=== PATIENT | female | born 1965 | race Caucasian/White ===

== ENCOUNTER 2021-02-08 09:05 | Inpatient (IN) ==
[2021-02-08] MEDS ORDERED: ASPIRIN CHEW 324 MG PO STA (09:36)
[2021-02-08] MEDS ORDERED: PANTOprazole 40 MG TAB PO STA (09:38)
[2021-02-08] MEDS ORDERED: ALUMINUM/MAGNESIUM SUSP 30 ML UDC PO STA (09:38)
[2021-02-08 09:43] LABS: Basophils # (auto) 0.04 K/uL (0-0.2); Basophils % (auto) 0.6 %; Eosinophils # (auto) 0.31 K/uL (0-0.5); Eosinophils % (auto) 4.8 %; Hematocrit (blood only) 42.4 % (37-47); Hemoglobin 14.2 g/dL (12.0-16.0); Immature Granulocytes # (auto) 0.01 K/uL (0.00-0.02); Immature Granulocytes % (auto) 0.2 %; Lymphocytes # (auto) 2.21 K/uL (1.2-3.4); Lymphocytes % (auto) 34.3 %; Mean Corpuscular Hemoglobin 29.5 pg (25-34); Mean Corpuscular Hgb Conc 33.5 g/dL (32-36); Monocytes # (auto) 0.43 K/uL (0.11-0.59); Monocytes % (auto) 6.7 %; Neutrophils # (auto) 3.45 K/uL (1.4-6.5); Neutrophils % (auto) 53.4 %; Platelet Count 271 K/uL (130-400); RDW Standard Deviation 42.1 fL (36.4-46.3); Red Blood Count 4.82 M/uL (4.2-5.4); White Blood Count 6.45 K/uL (4.8-10.8)
--- NOTE | 2021-02-08 09:46 | XRay Report ---
XR chest 1V portable CLINICAL HISTORY: Atypical chest pain. COMPARISON STUDY: No previous studies for comparison. FINDINGS: Lung volumes are normal. Lungs are clear. There is no pneumothorax or pleural effusion. Car diac size is normal. Mediastinal contours are normal. There is no evidence for pulmonary edema. IMPRESSION: No acute cardiopulmonary findings. ACT 112: Negative or not required by law. Electronically signed by: Andrés Briones M.D. 02/08/2021 9:45 AM
[2021-02-08 10:01] LABS: Albumin Level 3.9 gm/dl (3.4-5.0); BUN Creatinine Ratio 28.1 (10-20); Calcium 9.5 mg/dl (8.5-10.1); Creatinine Clr Calc Pharmacy 78.3 ml/min; Est GFR (Non-African American) 83.7 ml/min; Potassium 3.7 mmol/L (3.5-5.1)
--- NOTE | 2021-02-08 10:02 | Emergency Department Note ---
Impression & Plan Acute non-ST elevation myocardial infarction (NSTEMI), Chest pain, Abnormal EKG ED Provider Note NAME: MISSY KELLOGG AGE: 55 SEX: F : 1965 ARRIVES VIA: Walk-In INFORMANT: Patient, ED PROVIDER(S): Anam Kendrick DO CHIEF COMPLAINT: Chest pain HPI: The patient is a 55-year-old female who presented to the emergency department for an evaluation of chest pain. The patient describes anterior chest pain which she describes as a pressure and a tightness. She states that this began this morning while she was in bed. She has never had similar symptoms in the past. She denies having any difficulty breathing. She states when she got up she started moving around. The pain did start to resolve on its own. The patient denies having any back pain. She has no abdominal pain. She denies having any history of reflux or reflux symptoms at this time. The patient was not seen by her family doctor. She presented to the emergency department for further evaluation. The patient states her pain is completely gone at this time. She has had no fever or cough. The patient denies having any recent traveling. The patient denies having any lower extremity swelling or pain. ROS: See above HPI for pertinent positives & negatives. A total of 10 systems reviewed and were otherwise negative. PAST MEDICAL HISTORY: See Below PAST SURGICAL HISTORY: See Below FAMILY HISTORY: See Below SOCIAL HISTORY: See Below HOME MEDICATIONS: See Below ALLERGIES: See Below VITALS: See Below PHYSICAL EXAMINATION: GENERAL: Patient is awake alert in no acute distress patient is resting comfortably and showing no signs of anxiety EYES: The conjunctivae are clear. The pupils are round and reactive. EARS, NOSE, MOUTH AND THROAT: The nose is without any evidence of any deformity. NECK: The neck is nontender and supple. RESPIRATORY: Normal respiratory effort is noted there is no evidence of wheezing rhonchi or rales CARDIOVASCULAR: Regular rate and rhythm noted there no murmurs rubs or gallops normal S1 normal S2. GASTROINTESTINAL: The abdomen is soft. Abdomen is nontender. MUSCULOSKELETAL/EXTREMITIES: There is no evidence of gross deformity full range of motion is noted in the hips and shoulders. SKIN: There is no obvious evidence of any rash. There are no petechiae, pallor or cyanosis noted. NEUROLOGIC: Patient is awake alert and oriented x 3. Gait was steady. MEDICAL DECISION MAKING: The patient is a 55-year-old female who presented to the emergency department for an evaluation of chest pain. The patient described chest pressure and s queezing which began this morning when she awoke. She denies having any abdominal complaints at this time. She denies having any black or bloody bowel movements. The patient states that she does not have a history of reflux. Her initial EKG showed subtle nonspecific ST segment abnormalities in the lateral leads. This was compared to a previous tracing. She was found to have an elevation in her cardiac biomarker. At this time the patient is pain-free. The patient was treated with aspirin in the emergency department. She was also given Protonix as well as Maalox. She was reevaluated multiple times. She continued to be pain-free in the emergency department. I discussed the patient's condition w ith the on-call [facility] emergency services director as well as the on-call [facility] hospitalist. They have agreed to evaluate the patient in the emergency department for further management and disposition. Triage Nursing notes reviewed. Prior medical records reviewed Vital Signs: reviewed and remarkable for elevated blood pressure. Differential diagnosis: Cardiac ischemia, aortic dissection, pulmonary embolism, pneumothorax, pneumonia, pericarditis, myocarditis, esophageal rupture, GERD, cholecystitis, pancreatitis, musculoskeletal, as well as other pathologies. ER treatment provided: See below Diagnostics interpreted by me: ECG: EKG was obtained in the emergency department. My interpretation is normal sinus rhythm at 72 bpm. There is no ectopy. Lateral ST segment depressions we re noted. This was compared to a tracing from January 242018. The EKG changes are new compared to earlier tracing. Cardiac Monitoring: An order was placed for continuous cardiac monitoring. The monitor shows a rate of 86 bpm with sinus rhythm. Laboratory studies: As stated above and show below. Imaging studies: See below Consultation(s): 1025: I discussed this case with Dr. Rodgers who is on-call for the [facility] cardiology group. He will evaluate the patient in the emergency department. He recommends heparin at this time. 1035: I discussed this case with Dr. Sotomayor who is on-call for the [facility] hospitalist group. He will evaluate the patient in the emergency department. ED COURSE: Procedures: none PDMP:reviewed and no issues Critical Care: I have personally spent greater than 45 minutes of critical care time in the direct management of this patient. This includes bedside care, interpretation of diagnostic studies, and testing, discussion with consultants, patient, and family members, and other required patient management activities. This 45 minutes is in excess of all separately billable procedures. Past Med/Surg History Medical History Hypertension Surgical History (Updated 02/08/21 @ 11:57 by PRISCILLA Pritchard) No pertinent past surgical history Family History Father Heart disease [place] at 64, fatal [place] at age 67 Social History (Updated 02/08/21 @ 12:04 by PRISCILLA Pritchard) Smoking Status: Never smoker Hx Alcohol Use: No Hx Substance Use: No Preferred Language: Hungarian Communication Ability: Effective Tafe Lecturer Required: No Beliefs That Will Affect Care: None Current Living Situation: Spouse Other Information That Helps Us Care for You: No Feels Safe at Home: Yes Safety Concerns: Feels Safe At This Time Assistive Devices: None Allergies Allergies Allergy/AdvReac Type Severity Reaction Status Date / Time amoxicillin [From Augmentin] Allergy Severe Vomiting Unverified 02/08/21 10:37 clavulanic acid Allergy Severe Vomiting Unverified 02/08/21 10:37 [From Augmentin] Home Meds Home Medications Medication Instructions Recorded Confirmed chlorthalidone 25 mg tablet 25 mg PO QAM 02/08/21 02/08/21 multivitamin 1 tab PO QAM 02/08/21 02/08/21 Results & Data (ED) Vital Signs Vital Signs - 24 hr 02/08/21 10:00 02/08/21 10:30 Pulse Rate 73 94 H Pulse Rate from SpO2 Sensor 72 94 H Respiratory Rate 16 19 Blood Pressure 157/89 H Blood Pressure Mean 111 Pulse Oximetry 98 98 Home Medications Current Medication List: was personally reviewed by me Laboratory Data Attestation: I reviewed the patient's lab results. Result diagrams: 02/09/21 06:34 02/09/21 06:34 Lab Results 02/08/21 02/08/21 02/08/21 Range/Units 09:30 09:30 09:30 WBC 6.45 (4.8-10.8) K/uL RBC 4.82 (4.2-5.4) M/uL Hgb 14.2 (12.0-16.0) g/dL Hct 42.4 (37-47) % MCV 88.0 (80-100) fL MCH 29.5 (25-34) pg MCHC 33.5 (32-36) g/dL RDW Std Deviation 42.1 (36.4-46.3) fL RDW Coeff of Josh 13.0 (11.5-14.5) % Plt Count 271 (130-400) K/uL MPV 10.0 (7.4-10.4) fL Immature Gran % (Auto) 0.2 % Neut % (Auto) 53.4 % Lymph % (Auto) 34.3 % [place] % (Auto) 6.7 % Eos % (Auto) 4.8 % Baso % (Auto) 0.6 % Neut # (Auto) 3.45 (1.4-6.5) K/uL Lymph # (Auto) 2.21 (1.2-3.4) K/uL [place] # (Auto) 0.43 (0.11-0.59) K/uL Eos # (Auto) 0.31 (0-0.5) K/uL Baso # (Auto) 0.04 (0-0.2) K/uL Immature Gran # (Auto) 0.01 (0.00-0.02) K/uL PT 9.9 (9.0-12.0) Seconds INR 1.0 (0.9-1.1) APTT 22.9 (21.0-31.0) Seconds PTT Ratio 0.9 Sodium 137 (136-145) mmol/L Potassium 3.7 (3.5-5.1) mmol/L Chloride 101 (98-107) mmol/L Carbon Dioxide 32 (21-32) mmol/L Anion Gap 5.0 (3-11) BUN 22 H (7-18) mg/dl Creatinine 0.79 (0.6-1.2) mg/dl Est Cr Clr Drug Dosing 78.3 ml/min Est GFR ( Amer) 97.0 ml/min Est GFR (Non-Af Amer) 83.7 ml/min BUN/Creatinine Ratio 28.1 H (10-20) Glucose 122 H (70-99) mg/dl Calcium 9.5 (8.5-10.1) mg/dl Total Bilirubin 0.5 (0.2-1) mg/dl AST 22 (15-37) U/L ALT 50 (12-78) U/L Alkaline Phosphatase 68 (45-117) U/L Troponin I 0.291 H* (0-0.045) ng/ml Total Protein 8.3 H (6.4-8.2) gm/dl Albumin 3.9 (3.4-5.0) gm/dl Globulin 4.4 H (2.5-4.0) gm/dl Albumin/Globulin Ratio 0.9 (0.9-2) Lipase 171 (73-393) U/L COVID-19 Eval Order SARS-CoV-2 (PCR) (Negative) 02/08/21 02/08/21 Range/Units 10:20 10:20 WBC (4.8-10.8) K/uL RBC (4.2-5.4) M/uL Hgb (12.0-16.0) g/dL Hct (37-47) % MCV (80-100) fL MCH (25-34) pg MCHC (32-36) g/dL RDW Std Deviation (36.4-46.3) fL RDW Coeff of Josh (11.5-14.5) % Plt Count (130-400) K/uL MPV (7.4-10.4) fL Immature Gran % (Auto) % Neut % (Auto) % Lymph % (Auto) % [place] % (Auto) % Eos % (Auto) % Baso % (Auto) % Neut # (Auto) (1.4-6.5) K/uL Lymph # (Auto) (1.2-3.4) K/uL [place] # (Auto) (0.11-0.59) K/uL Eos # (Auto) (0-0.5) K/uL Baso # (Auto) (0-0.2) K/uL Immature Gran # (Auto) (0.00-0.02) K/uL PT (9.0-12.0) Seconds INR (0.9-1.1) APTT (21.0-31.0) Seconds PTT Ratio Sodium (136-145) mmol/L Potassium (3.5-5.1) mmol/L Chloride (98-107) mmol/L Carbon Dioxide (21-32) mmol/L Anion Gap (3-11) BUN (7-18) mg/dl Creatinine (0.6-1.2) mg/dl Est Cr Clr Drug Dosing ml/min Est GFR ( Amer) ml/min Est GFR (Non-Af Amer) ml/min BUN/Creatinine Ratio (10-20) Glucose (70-99) mg/dl Calcium (8.5-10.1) mg/dl Total Bilirubin (0.2-1) mg/dl AST (15-37) U/L ALT (12-78) U/L Alkaline Phosphatase (45-117) U/L Troponin I (0-0.045) ng/ml Total Protein (6.4-8.2) gm/dl Albumin (3.4-5.0) gm/dl Globulin (2.5-4.0) gm/dl Albumin/Globulin Ratio (0.9-2) Lipase (73-393) U/L COVID-19 Eval Order Covid19 at [facility] SARS-CoV-2 (PCR) NEGATIVE (Negative) Administered Medications Acetaminophen (Acetaminophen 325 Mg Tab) 650 mg PO Q4H PRN PRN Reason: Pain or Fever Stop: 03/10/21 18:21 Last Admin: 02/09/21 13:51 Dose: 650 mg Documented by: [id number] Aspirin (Aspirin 81 Mg Ectab) 81 mg PO DAILY [facility] Stop: 03/11/21 08:59 Last Admin: 02/10/21 08:17 Dose: 81 mg Documented by: [id number] Admin: 02/09/21 08:26 Dose: 81 mg Documented by: [id number] [facility] ([facility] 25 Mg Tab) [facility] Stop: 03/11/21 08:59 Last Admin: 02/10/21 08:17 Dose: 25 mg Documented by: [id number] Admin: 02/09/21 08:26 Dose: 25 mg Documented by: [id number] Isosorbide Mononitrate (Isosorbide [place] Extended Rel 30 Mg Tabcr) [facility] Stop: 03/11/21 11:29 Last Admin: 02/10/21 08:17 Dose: 30 mg Documented by: [id number] Admin: 02/09/21 12:19 Dose: 30 mg Documented by: [id number] Lisinopril (Lisinopril 10 Mg Tab) [address] [facility] Stop: 03/11/21 11:29 Last Admin: 02/10/21 08:17 Dose: 10 mg Documented by: [id number] Admin: 02/09/21 12:19 Dose: 10 mg Documented by: [id number] Metoprolol Succinate (Metoprolol Succ 25mg Ext Rel Tab) [address] [facility] Stop: 03/12/21 09:59 Last Admin: 02/10/21 09:54 Dose: 25 mg Documented by: [id number] Discontinued Medications Al Hydrox/Mg Hydrox/Simethicone (Aluminum/Magnesium Susp 30 Ml Udc) 30 ml PO NOW STA Stop: 02/08/21 09:39 Last Admin: 02/08/21 09:42 Dose: 30 ml Documented by: [id number] Aspirin (Aspirin Chew 324 Mg) 324 mg PO NOW STA Stop: 02/08/21 09:37 Last Admin: 02/08/21 09:42 Dose: 324 mg Documented by: [id number] Fentanyl Citrate (Fentanyl Citrate 100 Mcg/2 Ml Vial) Confirm Administered Dose 100 mcg .ROUTE .STK-MED ONE Stop: 02/09/21 10:33 Last Admin: 02/09/21 10:50 Dose: Not Given Documented by: [id number] Heparin Sodium (Porcine) (Heparin Sod (Porcine) 1000 Unit/Ml) 1 units IV NOW ONE Stop: 02/08/21 10:42 Last Admin: 02/08/21 10:40 Dose: 5,000 units Documented by: [id number] Cosigned by: [id number] Heparin Sodium (Porcine) (Heparin (Porcine) 1000 Unit/Ml 10 Ml ([employer] Use Only)) Confirm Administered Dose 10,000 units .ROUTE .STK-MED ONE Stop: 02/09/21 10:33 Last Admin: 02/09/21 10:50 Dose: Not Given Documented by: [id number] Heparin Sodium/Dextrose (Heparin Iv Adult Wt-Based Standard With Bolus Protocol) 1 ea IV NOW STA; Protocol Stop: 02/08/21 10:27 Last Admin: 02/08/21 10:40 Dose: 1 ea Documented by: [id number] Heparin Sodium/Sodium Chloride (Heparin In Nss Infusion 1000 Unit/500 Ml (2 U/Ml) Bag) Confirm Administered Dose 3,000 units IV .STK-MED ONE Stop: 02/09/21 10:33 Last Admin: 02/09/21 10:50 Dose: 3,000 units Documented by: [id number] Heparin Sodium/Dextrose (Heparin Sodium/Dextrose) 25,000 units in 500 mls @ 21 mls/hr IV .[id number] [facility]; Protocol Stop: 03/10/21 10:44 Last Admin: 02/09/21 11:38 Dose: Not Given Documented by: [id number] Titration: 02/09/21 11:34 Dose: 0 units/hr, 0 mls/hr Documented by: [id number] Cosigned by: [id number] Admin: 02/09/21 08:26 Dose: 1,050 units/hr, 21 mls/hr Documented by: [id number] Cosigned by: [id number] Titration: 02/09/21 08:26 Dose: 1,100 units/hr, 22 mls/hr Documented by: [id number] Cosigned by: [id number] Titration: 02/09/21 07:00 Dose: 1,100 units/hr, 22 mls/hr Documented by: [id number] Cosigned by: [id number] Titration: 02/08/21 19:44 Dose: 1,100 units/hr, 22 mls/hr Documented by: [id number] Cosigned by: [id number] Admin: 02/08/21 10:39 Dose: 1,100 units/hr, 22 mls/hr Documented by: [id number] Cosigned by: [id number] Sodium Chloride (Nss 1000ml) 1,000 mls @ 76 mls/hr IV .[id number] [facility] Stop: 03/11/21 08:44 Last Infusion: 02/10/21 08:23 Dose: 0 mls/hr Documented by: [id number] Admin: 02/10/21 00:05 Dose: 76 mls/hr Documented by: [id number] Infusion: 02/10/21 00:05 Dose: 76 mls/hr Documented by: [id number] Admin: 02/09/21 11:33 Dose: 76 mls/hr Documented by: [id number] Metoprolol Tartrate (Metoprolol Tartrate 25 Mg Tab) 12.5 mg PO BID [facility] Stop: 03/10/21 20:59 Last Admin: 02/10/21 08:16 Dose: 12.5 mg Documented by: [id number] Admin: 02/09/21 20:30 Dose: 12.5 mg Documented by: [id number] Admin: 02/09/21 08:26 Dose: 12.5 mg Documented by: [id number] Admin: 02/08/21 21:39 Dose: 12.5 mg Documented by: [id number] Midazolam HCl (Midazolam Hcl 1 Mg/Ml 2ml Vial) Confirm Administered Dose 2 mg .ROUTE .STK-MED ONE Stop: 02/09/21 10:33 Last Admin: 02/09/21 10:50 Dose: 2 mg Documented by: [id number] Nicardipine HCl (Nicardipine Hcl Inj 2.5 Mg/Ml 10 Ml Amp) Confirm Administered Dose 25 mg .ROUTE .STK-MED ONE Stop: 02/09/21 10:33 Last Admin: 02/09/21 10:51 Dose: 25 mg Documented by: [id number] Nitroglycerin/Dextrose (Nitroglycerin/D5w 100mcg/Ml 20ml Syr) Confirm Administered Dose 2,000 mcg .ROUTE .LSN Mobile-MED ONE Stop: 02/09/21 10:33 Last Admin: 02/09/21 10:51 Dose: 2,000 mcg Documented by: [id number] Pantoprazole Sodium (Pantoprazole 40 Mg Tab) 40 mg PO NOW STA Stop: 02/08/21 09:39 Last Admin: 02/08/21 09:42 Dose: 40 mg Documented by: [id number] Imaging Data Radiologist's Impression: Chest X-Ray 02/08/21 09:20 XR chest 1V portable CLINICAL HISTORY: Atypical chest pain. COMPARISON STUDY: No previous studies for comparison. FINDINGS: Lung volumes are normal. Lungs are clear. There is no pneumothorax or pleural effusion. Cardiac size is normal. Mediastinal contours are normal. There is no evidence for pulmonary edema. IMPRESSION: No acute cardiopulmonary findings. ACT 112: Negative or not required by law. Electronically signed by: Andrés Briones M.D. 02/08/2021 9:45 AM Discharge Plan Visit Data Chief Complaint: Cardiac Assessment Stated Complaint: CHEST DISCOMFORT,BURNING ED Provider: Anam Kendrick Discharge Problem: Acute non-ST elevation myocardial infarction (NSTEMI), Chest pain, Abnormal EKG Patient Disposition: Admitted As Inpatient Discharge Instructions Interventions: ED Discharge Assessment Last Done: 02/08/21 17:58 Discharge Problem: Chest pain Qualifiers: Chest pain type: unspecified Qualified Code(s): R07.9 - Chest pain, unspecified
[2021-02-08 10:03] LABS: Partial Thromboplastin Ratio 0.9; Partial Thromboplastin Time 22.9 Seconds (21.0-31.0); Prothrombin Time 9.9 Seconds (9.0-12.0)
[2021-02-08 10:11] LABS: Albumin Globulin Ratio 0.9 (0.9-2); Bilirubin,Total 0.5 mg/dl (0.2-1); Globulin 4.4 gm/dl (2.5-4.0); Total Protein 8.3 gm/dl (6.4-8.2); Troponin I 0.291 ng/ml (0-0.045)
[2021-02-08] MEDS ORDERED: Heparin IV Adult Wt-Based Standard WITH Bolus Protocol IV STA (10:26)
[2021-02-08] MEDS: HEPARIN SODIUM/DEXTROSE 25,000 UNITS/500 ML BAG IV SCH (10:39)
[2021-02-08] MEDS ORDERED: HEPARIN SOD (PORCINE) 1000 UNIT/ML IV ONE (10:41)
--- NOTE | 2021-02-08 11:18 | Cardiology Consultation ---
Date of Consultation February 08, 2021 Assessment & Plan (1) Chest pain: (2) Troponin level elevated: The patient is currently pain-free. Her EKG after admission to the ER is normal. She has a slight elevation in her cardiac troponins and I would recommend that she be admitted an additional cardiac markers drawn. Obtain an echocardiogram. I would also start her on IV heparin and aspirin. Further recommendations following the above. History of Present Illness History of Present Illness This is a 55-year-old female who awoke this morning with chest discomfort which she describes as severe associated with some nausea. The discomfort lasted for approximately 1/2-hour and then spontaneously resolved. The patient by the time she presented to the emergency department was pain-free. Her EKG shows no acute changes and my review would suggest it is normal. Her first cardiac troponin however is slightly elevated. The patient has no prior history of heart disease. She is a never smoke. She has no prior history of diabetes hypercholesterolemia or hypertension. No significant family history of heart disease. Allergies Allergy/AdvReac Type Severity Reaction Status Date / Time amoxicillin [From Augmentin] Allergy Severe Vomiting Unverified 02/08/21 10:37 clavulanic acid Allergy Severe Vomiting Unverified 02/08/21 10:37 [From Augmentin] Home Medications Medication Instructions Recorded Confirmed Type chlorthalidone 25 mg tablet 25 mg PO QAM 02/08/21 02/08/21 History multivitamin 1 tab PO QAM 02/08/21 02/08/21 History Patient History Medical History Hypertension Surgical History (Updated 02/08/21 @ 11:57 by PRISCILLA Pritchard) No pertinent past surgical history Family History Father Heart disease [place] at 64, fatal [place] at age 67 Social History (Updated 02/08/21 @ 12:04 by PRISCILLA Pritchard) Smoking Status: Never smoker Hx Alcohol Use: No Hx Substance Use: No Preferred Language: Georgian Communication Ability: Effective Colorer Required: No Beliefs That Will Affect Care: None Current Living Situation: Spouse Other Information That Helps Us Care for You: No Feels Safe at Home: Yes Safety Concerns: Feels Safe At This Time Assistive Devices: None Review of Systems Review of Systems: Review of Systems: See HPI for pertinent positives. All other 10 point review of systems are negative.In addition the patient has no prior history of GERD or peptic ulcer disease. Physical Exam Physical Exam: General: no acute distress and stated age Head: normocephalic, no masses, lesions, tenderness or abnormalities Eyes: conjunctiva are pink and non-injected, sclera clear Neck: supple, no adenopathy, no bruits, normal jugular venous pulse, no hepatojugular reflux Chest: normal shape and normal respiratory effort Lungs: clear to auscultation and percussion Cardiac Exam: - regular rate & rhythm, no murmurs gallops or rubs - normal S1, normal S2 Pulses: 2(+) throughout Abdomen: abdomen soft, non-tender, no abnormal masses and no hepatosplenomegaly Musculoskeletal: no gait disturbance, no joint inflammation, no deforming arthritis Extremities: no edema and no cyanosis Neuro: grossly normal exam Results & Data ([facility]) Vital Signs (Past 12 Hours) Vital Signs Temp Pulse Resp BP Pulse Ox 02/08/21 10:30 94 H 19 98 02/08/21 10:00 73 16 157/89 H 98 02/08/21 09:44 85 19 97 02/08/21 09:09 36.9 C 86 18 164/92 H 96 Laboratory Results Laboratory Results - last 24 hr 02/08/21 02/08/21 02/08/21 09:30 09:30 09:30 WBC 6.45 RBC 4.82 Hgb 14.2 Hct 42.4 MCV 88.0 MCH 29.5 MCHC 33.5 RDW Std Deviation 42.1 RDW Coeff of Josh 13.0 Plt Count 271 MPV 10.0 Immature Gran % (Auto) 0.2 Neut % (Auto) 53.4 Lymph % (Auto) 34.3 [place] % (Auto) 6.7 Eos % (Auto) 4.8 Baso % (Auto) 0.6 Neut # (Auto) 3.45 Lymph # (Auto) 2.21 [place] # (Auto) 0.43 Eos # (Auto) 0.31 Baso # (Auto) 0.04 Immature Gran # (Auto) 0.01 PT 9.9 INR 1.0 APTT 22.9 PTT Ratio 0.9 Sodium 137 Potassium 3.7 Chloride 101 Carbon Dioxide 32 Anion Gap 5.0 BUN 22 H Creatinine 0.79 Est Cr Clr Drug Dosing 78.3 Est GFR ( Amer) 97.0 Est GFR (Non-Af Amer) 83.7 BUN/Creatinine Ratio 28.1 H Glucose 122 H Calcium 9.5 Total Bilirubin 0.5 AST 22 ALT 50 Alkaline Phosphatase 68 Troponin I 0.291 H* Total Protein 8.3 H Albumin 3.9 Globulin 4.4 H Albumin/Globulin Ratio 0.9 Lipase 171 COVID-19 Eval Order SARS-CoV-2 (PCR) 02/08/21 02/08/21 10:20 10:20 WBC RBC Hgb Hct MCV MCH MCHC RDW Std Deviation RDW Coeff of Josh Plt Count MPV Immature Gran % (Auto) Neut % (Auto) Lymph % (Auto) [place] % (Auto) Eos % (Auto) Baso % (Auto) Neut # (Auto) Lymph # (Auto) [place] # (Auto) Eos # (Auto) Baso # (Auto) Immature Gran # (Auto) PT INR APTT PTT Ratio Sodium Potassium Chloride Carbon Dioxide Anion Gap BUN Creatinine Est Cr Clr Drug Dosing Est GFR ( Amer) Est GFR (Non-Af Amer) BUN/Creatinine Ratio Glucose Calcium Total Bilirubin AST ALT Alkaline Phosphatase Troponin I Total Protein Albumin Globulin Albumin/Globulin Ratio Lipase COVID-19 Eval Order Covid19 at [facility] SARS-CoV-2 (PCR) Pending Medications Administered Current Inpatient Medications Heparin Sodium/Dextrose (Heparin Sodium/Dextrose) 25,000 units in 500 mls @ 22 mls/hr IV .[id number] [facility]; Protocol Stop: 03/10/21 10:44 Last Admin: 02/08/21 10:39 Dose: 1,100 units/hr, 22 mls/hr Documented by:
--- NOTE | 2021-02-08 12:08 | History & Physical Report ---
Date of Service February 08, 2021 Assessment & Plan (1) Troponin level elevated: (2) Chest pain: Plan: -Admit to telemetry -Patient presenting from home with reports of mid sternal chest pressure and burning, now chest pain-free -In the ED, initial troponin 0.291, EKG without acute ST changes -Heparin drip started -Received full dose aspirin, continue with ASA 81 mg daily -Lipid panel with a.m. labs -Trend troponin, resting echo -Given elevated BP and HR, start low-dose beta-jessica -Cardiology consult, input appreciated (3) Hypertension: Plan: -Presenting BP 164/92 -Continue home chlorthalidone, start metoprolol tartrate 12.5 mg twice daily (4) DVT prophylaxis: Plan: -On heparin drip History of Present Illness Chief Complaint: Chest pain Primary Care Provider: Chet Armstrong MD 55-year-old female with PMH HTN, and other problems listed below who presents the ED for evaluation of chest pain. Patient reports that around 8 AM, she developed a midsternal chest pressure and burning. Describes pain as being moderately severe. Denies associated shortness of breath, diaphoresis, nausea, lightheadedness, syncope. Chest discomfort lasted for about 30 minutes and patient then came to the ED for further evaluation. Since arriving to the ED, pain spontaneously resolved on its own. Patient reports she otherwise has been feeling well recently. No other recent illnesses, fevers, chills. Denies abdominal pain, vomiting, diarrhea. No urinary symptoms. In the ED, initial troponin 0.291, EKG without acute changes. Mildly hypertensive with BP 164/92. Patient was given full dose aspirin, GI cocktail, p.o. Protonix. She was also started on a heparin drip. Patient is currently chest pain-free. Allergies Allergy/AdvReac Type Severity Reaction Status Date / Time amoxicillin [From Augmentin] Allergy Severe Vomiting Unverified 02/08/21 10:37 clavulanic acid Allergy Severe Vomiting Unverified 02/08/21 10:37 [From Augmentin] Home Medications Medication Instructions Recorded Confirmed Type chlorthalidone 25 mg tablet 25 mg PO QAM 02/08/21 02/08/21 History multivitamin 1 tab PO QAM 02/08/21 02/08/21 History Past Med/Surg History Medical History Hypertension Surgical History (Updated 02/08/21 @ 11:57 by PRISCILLA Pritchard) No pertinent past surgical history Family History Father Heart disease [place] at 64, fatal [place] at age 67 Social History (Updated 02/08/21 @ 12:04 by PRISCILLA Pritchard) Smoking Status: Never smoker Hx Alcohol Use: No Hx Substance Use: No Preferred Language: Greenlandic Communication Ability: Effective Certified Juvenile Probation Officer Required: No Beliefs That Will Affect Care: None Current Living Situation: Spouse Other Information That Helps Us Care for You: No Feels Safe at Home: Yes Safety Concerns: Feels Safe At This Time Assistive Devices: None Review of Systems Review of Systems: ROS per HPI, all other systems reviewed and negative Physical Exam Constitutional: WD/WN, vitals as above Eyes: PERRL, conjunctivae normal, anicteric sclerae ENMT: external ear and nose normal, oropharynx normal Respiratory: normal respiratory effort, lungs clear to auscultation Cardiovascular: Rate/Rhythm: regular rate and regular rhythm Vessels: normal peripheral pulses Extremities: no edema Gastrointestinal (Abdomen): normal bowel sounds, soft, nontender, no hepatosplenomegaly Musculoskeletal: no cyanosis or clubbing, extremities motor strength 5/5 Skin: no rashes, warm and dry Neurologic: PERRL, EOMI, accommodation nl, no face palsy, no dysarthria Psychiatric: A+Ox3, euthymic affect Results & Data Results & Data ([facility]) Vital Signs (Past 12 Hours) Vital Signs Temp Pulse Pulse Resp BP BP Pulse Ox 02/08/21 11:06 77 18 128/81 95 02/08/21 10:30 94 H 19 98 02/08/21 10:00 73 16 157/89 H 98 02/08/21 09:44 85 19 97 02/08/21 09:09 36.9 C 86 18 164/92 H 96 Laboratory Results Short CBC 02/08/21 Range/Units 09:30 WBC 6.45 (4.8-10.8) K/uL Hgb 14.2 (12.0-16.0) g/dL Hct 42.4 (37-47) % Plt Count 271 (130-400) K/uL BMP 02/08/21 09:30 Sodium 137 Potassium 3.7 Chloride 101 Carbon Dioxide 32 BUN 22 H Creatinine 0.79 Glucose 122 H Calcium 9.5 Cardiac Enzymes 02/08/21 Range/Units 09:30 Troponin I 0.291 H* (0-0.045) ng/ml Liver Function 02/08/21 Range/Units 09:30 Total Bilirubin 0.5 (0.2-1) mg/dl AST 22 (15-37) U/L ALT 50 (12-78) U/L Alkaline Phosphatase 68 (45-117) U/L Albumin 3.9 (3.4-5.0) gm/dl Diagnostic Findings Chest X-Ray 02/08/21 09:20 XR chest 1V portable CLINICAL HISTORY: Atypical chest pain. COMPARISON STUDY: No previous studies for comparison. FINDINGS: Lung volumes are normal. Lungs are clear. There is no pneumothorax or pleural effusion. Cardiac size is normal. Mediastinal contours are normal. There is no evidence for pulmonary edema. IMPRESSION: No acute cardiopulmonary findings. ACT 112: Negative or not required by law. Electronically signed by: Andrés Briones M.D. 02/08/2021 9:45 AM Code Status & VTE Plan VTE Prophylaxis Plan VTE Prophylaxis will be ordered: Yes Supervising Physician Co-Signing Physician Notes Attending Addendum: delayed entry date of service noted above care coordinated with BHARGAV Jin please refer to her notes for full details, I agree with her notes patient seen and examined, records reviewed by myself as well on exam, patient seen resting in bed, comfortable watching TV states chest pain is 1/10 no nausea, dyspnea, headache, dizziness no other symptoms VS noted and reviewed orientedx 3 , not in distress, speaks in sentences with no effort nor accessory muscle use normal rate, regular rhythm, no murmurs clear breath sounds bilaterally non distended, soft, nontender no bipedal edema, erythema, warmth no neuro deficits WBC 8.8 Hg 14.4 Crea 0.7 ASSESSMENT AND PLAN NSTEMI trop increased to 8 chest pain 1 continue heparin drip for cardiac cath in AM other diagnoses and plan of care as per PRISCILLA Salter MD
[2021-02-08 17:24] LABS: Partial Thromboplastin Ratio 1.8
[2021-02-08 17:29] LABS: Partial Thromboplastin Time 47.3 Seconds (21.0-31.0)
[2021-02-08] MEDS ORDERED: ONDANSETRON INJ 2 MG/ML 2 ML VIAL IV PRN (18:22)
[2021-02-08] MEDS ORDERED: ACETAMINOPHEN 325 MG TAB PO PRN (18:22)
[2021-02-08] MEDS: METOPROLOL TARTRATE 25 MG TAB PO SCH (21:39)
[2021-02-09 07:05] LABS: Hemoglobin 14.4 g/dL (12.0-16.0); Mean Corpuscular Hemoglobin 30.2 pg (25-34); Mean Corpuscular Hgb Conc 34.3 g/dL (32-36); Mean Corpuscular Volume 88.1 fL (80-100); Mean Platelet Volume 10.1 fL (7.4-10.4); Platelet Count 263 K/uL (130-400); RDW Coefficient of Variation 13.3 % (11.5-14.5); RDW Standard Deviation 42.9 fL (36.4-46.3); Red Blood Count 4.77 M/uL (4.2-5.4); White Blood Count 8.83 K/uL (4.8-10.8)
[2021-02-09 07:28] LABS: Partial Thromboplastin Ratio 2.6
[2021-02-09 07:44] LABS: Partial Thromboplastin Time 69.2 Seconds (21.0-31.0)
[2021-02-09 07:54] LABS: BUN Creatinine Ratio 27.1 (10-20); Calcium 9.6 mg/dl (8.5-10.1); Creatinine Clr Calc Pharmacy 82.6 ml/min; Est GFR (African American) 101.6 ml/min; Est GFR (Non-African American) 87.7 ml/min; Potassium 3.4 mmol/L (3.5-5.1)
[2021-02-09 07:59] LABS: Troponin I 4.71 ng/ml (0-0.045)
[2021-02-09] MEDS: ASPIRIN 81 MG ECTAB PO SCH (08:26)
[2021-02-09] MEDS: METOPROLOL TARTRATE 25 MG TAB PO SCH ×2 (08:26→20:30)
[2021-02-09] MEDS: HEPARIN SODIUM/DEXTROSE 25,000 UNITS/500 ML BAG IV SCH ×2 (08:26→11:38)
[2021-02-09] MEDS: CHLORTHALIDONE 25 MG TAB PO SCH (08:26)
--- NOTE | 2021-02-09 08:42 | Communication Note ---
Date of Service: February 09, 2021 The patient had an elevation in her cardiac troponins and I recommended a cardiac catheterization. I have explained the risk, benefit and intent of the p rocedure to the patient including the potential for catheter-based intervention such as balloon angioplasty or intracoronary stents, and she is willing to proceed. I will have further recommendations following the above.
[2021-02-09] MEDS ORDERED: MIDAZOLAM HCL 1 MG/ML 2ML VIAL ONE (10:32)
[2021-02-09] MEDS ORDERED: HEPARIN (PORCINE) 1000 UNIT/ML 10 ML (CATH LAB USE ONLY) ONE (10:32)
[2021-02-09] MEDS ORDERED: NITROGLYCERIN/D5W 100MCG/ML 20ML SYR ONE (10:32)
[2021-02-09] MEDS ORDERED: niCARdipine HCL INJ 2.5 MG/ML 10 ML AMP ONE (10:32)
[2021-02-09] MEDS ORDERED: fentaNYL citrate 100 MCG/2 ML VIAL ONE (10:32)
--- NOTE | 2021-02-09 11:09 | Cardiac Catheterization ---
Date of Service February 09, 2021 Cardiac Cath Report Cardiac Cath Report Procedure: 1. Left heart catheterization 2. Coronary angiography 3. Left ventriculogram History: This is a 55-year-old female who presented to the emergency department with 1/2 hours worth of chest pain. Her EKG was normal on presentation but her cardiac troponins increased to 8. Procedure summary: After informed consent was obtained the patient was prepped and draped in the usual manner for right transradial approach. Preformed 5 Ukrainian diagnostic catheters were utilized for the coronary angiograms. A 5 Ukrainian pigtail catheter was utilized for the left ventriculogram. Intracoronary nitroglycerin was given during the procedure for spasm of the right coronary artery which resolved after the nitroglycerin. Following the procedure the patient was returned to her room in stable condition. ACC data: Start time 10:40 AM End time 11:06 AM Opening aortic pressure 118/75 Left ventricular pressure 126/12 Closing aortic pressure 142/84 Sedation 2 mg intravenous Versed IV fluids 66 cc normal saline Contrast 112 cc Optiray Fluoroscopy time 4.6 minutes Radiation 688 mGy DAP 65.40 Laws per centimeter squared Right dominant system AUC score 9 Coronary angiography: Selective injections of the left coronary artery reveal the left main trunk to be widely patent. The left circumflex system consists mainly of a large lateral posterior marginal branch and a smaller ramus branch. The left circumflex system is widely patent. The LAD extends to the apex of the heart. The LAD gives off a small first diagonal branch. The LAD system is widely patent. Selective injections of the right coronary artery initially showed catheter spasm proximally. Patient was given 200 micro grams of intracoronary nitroglycerin and the spasm completely resolved. Further injections of the right coronary artery reveal it to be widely patent. The right coronary artery is dominant. Left ventriculogram: Injections into the left ventricle reveal hypokinesis of the distal anterior wall and apex consistent with Tokasubo cardiomyopathy. The mitral valve is competent. The aortic root and ascending aorta have normal morphology and diameter. Summary: Widely patent coronary anatomy. The left ventricle is hypokinetic in the anterior and apical myocardium consistent with Tokasubo cardiomyopathy. Recommendations: The patient should be treated appropriately for her stress-induced cardiomyopathy. I would in addition add an oral nitrate to prevent coronary spasm.
--- NOTE | 2021-02-09 11:09 | Pre Anesthesia Assessment ---
Date of Service February 09, 2021 Pre Sedation Assessment Vital Signs Temp Pulse Pulse Resp BP BP Pulse Ox 02/09/21 10:05 36.7 C 78 16 145/99 H 95 02/09/21 07:58 36.6 C 81 18 143/82 H 95 02/09/21 07:30 71 02/09/21 04:43 36.8 C 79 18 115/76 96 02/09/21 00:00 69 02/08/21 23:35 37.2 C 63 18 125/68 96 02/08/21 20:42 37.0 C 84 18 131/85 93 02/08/21 18:24 36.8 C 86 16 170/84 H 96 02/08/21 17:58 83 20 136/87 96 02/08/21 17:50 82 16 96 02/08/21 17:40 86 17 97 02/08/21 17:30 79 16 136/85 96 02/08/21 17:20 84 18 95 02/08/21 17:10 92 H 15 02/08/21 17:00 90 16 128/87 02/08/21 16:50 90 20 02/08/21 16:40 91 H 26 H 02/08/21 16:30 81 14 97 02/08/21 16:20 83 21 95 02/08/21 16:10 80 15 94 02/08/21 16:03 80 20 147/103 H 94 02/08/21 14:50 82 19 96 02/08/21 14:40 84 14 95 02/08/21 14:30 82 15 93 02/08/21 14:20 77 18 95 02/08/21 14:10 82 15 95 02/08/21 14:00 83 14 95 02/08/21 13:50 82 17 94 02/08/21 13:40 78 14 95 02/08/21 13:30 80 14 128/86 94 02/08/21 13:20 85 18 96 02/08/21 13:10 87 16 97 02/08/21 13:00 83 80 16 134/88 128/86 95 02/08/21 12:50 84 16 95 02/08/21 12:40 88 16 96 02/08/21 12:30 75 16 130/87 95 02/08/21 12:20 82 14 95 02/08/21 12:10 82 15 94 02/08/21 12:00 77 15 133/90 95 02/08/21 11:50 86 25 H 96 02/08/21 11:40 76 18 95 02/08/21 11:30 79 17 97 02/08/21 11:20 75 16 96 02/08/21 11:10 77 17 96 Pre-Sedation Airway Assessment Smoking Status: Never smoker Hx Sleep Apnea: No Short, Thick Neck: No Thyromental Distance: > or= 3.5 Finger Breadths Oral Cavity: + Dental Abnormalities Mallampati Class: III ASA: ASA2 NPO Status Date of Last Intake of Fluids: 02/08/21 Time of Last Intake of Fluids: 20:00 Date of Last Intake of Solid Food: 02/08/21 Time of Last Intake of Solid Foods: 20:00 Notes The planned sedation has been discussed with the patient. Informed Consent was obtained. I have identified the patient, determined the appropriateness of sedation and have assessed the patient immediately prior to the procedure. All medicine(s) and interventions are by my order.
--- NOTE | 2021-02-09 11:10 | Post Anesthesia Assessment ---
Date of Service February 09, 2021 Post Sedation Assessment Vital Signs Temp Pulse Pulse Resp BP BP Pulse Ox 02/09/21 10:05 36.7 C 78 16 145/99 H 95 02/09/21 07:58 36.6 C 81 18 143/82 H 95 02/09/21 07:30 71 02/09/21 04:43 36.8 C 79 18 115/76 96 02/09/21 00:00 69 02/08/21 23:35 37.2 C 63 18 125/68 96 02/08/21 20:42 37.0 C 84 18 131/85 93 02/08/21 18:24 36.8 C 86 16 170/84 H 96 02/08/21 17:58 83 20 136/87 96 02/08/21 17:50 82 16 96 02/08/21 17:40 86 17 97 02/08/21 17:30 79 16 136/85 96 02/08/21 17:20 84 18 95 02/08/21 17:10 92 H 15 02/08/21 17:00 90 16 128/87 02/08/21 16:50 90 20 02/08/21 16:40 91 H 26 H 02/08/21 16:30 81 14 97 02/08/21 16:20 83 21 95 02/08/21 16:10 80 15 94 02/08/21 16:03 80 20 147/103 H 94 02/08/21 14:50 82 19 96 02/08/21 14:40 84 14 95 02/08/21 14:30 82 15 93 02/08/21 14:20 77 18 95 02/08/21 14:10 82 15 95 02/08/21 14:00 83 14 95 02/08/21 13:50 82 17 94 02/08/21 13:40 78 14 95 02/08/21 13:30 80 14 128/86 94 02/08/21 13:20 85 18 96 02/08/21 13:10 87 16 97 02/08/21 13:00 83 80 16 134/88 128/86 95 02/08/21 12:50 84 16 95 02/08/21 12:40 88 16 96 02/08/21 12:30 75 16 130/87 95 02/08/21 12:20 82 14 95 02/08/21 12:10 82 15 94 02/08/21 12:00 77 15 133/90 95 02/08/21 11:50 86 25 H 96 02/08/21 11:40 76 18 95 02/08/21 11:30 79 17 97 02/08/21 11:20 75 16 96 02/08/21 11:10 77 17 96 Discharge Sedation Level of Care: Fast Track Phase II Post Sedation Plan On clinical assessment, the patient appears to have tolerated the sedation without complications. Patient is recovering as anticipated. Patient will continue to be monitored by nursing and may be discharged when sedation discharge criteria are met per below protocol. Upon Completions of procedure up to 15 minutes continue every 5 minute vital s igns and the P.A.R. score; then discharge to a Phase I or Fast Track to Phase II per the following guidelines: * Discharge Patient to appropriate Phase II area if PAR is 8 or greater or return to pre- procedure baseline. The post - procedure orders will be as directed. * If PAR score is less than 8 or not return to pre-procedure baseline then patient will follow Phase I monitoring till PAR is reached for Phase II. The Phase I may be done in procedure room or may call to secure a Phase I area. * If naloxone or flumazenil are used for reversal, hold in Phase I for continued monitoring from when last reversal dose was given for a minimum of 60 minutes or longer pending the nurse and/or physician discretion of patient condition before discharge to Phase II. Please call the Sedation Physician to re-evaluate and complete post-note for discharge to Phase II area. Do NOT discharge from procedure sedation or Phase 1 until post- sedation evaluation note is complete by procedure /sedation MD Sedation Discharge Instructions to be given to the patient at discharge to home.
[2021-02-09] MEDS: SODIUM CHLORIDE 0.9% 1000ML 1,000 ML IV SCH (11:33)
[2021-02-09] MEDS: ISOSORBIDE MONO EXTENDED REL 30 MG TABCR PO SCH (12:19)
[2021-02-09] MEDS: lisinopril 10 MG TAB PO SCH (12:19)
--- NOTE | 2021-02-09 14:02 | Cardiology Progress Note ---
Date of Service February 09, 2021 Assessment & Plan (1) Chest pain: (2) Troponin level elevated: (3) Takotsubo syndrome: Plan: I discussed the results of the cardiac catheterization with the patient. It appears that she has Takosubo syndrome with a stress-induced cardiomyopathy. Coronary anatomy is widely open. She admits that she recently had a friend who was very sick in the hospital and because grades stress and discomfort for her. At this point she will remain on a beta-jessica as well as an ALISA inhibitor. To prevent further coronary spasm I have ordered isosorbide mononitrate. She should also remain on aspirin 81 mg daily. Otherwise she is doing well anticipate discharge tomorrow. Admission and Anticipated Discharge Date Admission Date: February 08, 2021 Subjective The patient is resting comfortably. I discussed the cardiac catheterization with her that showed widely patent coronary anatomy. Review of Systems Review of Systems: Review of Systems: See HPI for pertinent positives. All other 10 point review of systems are negative.In addition the patient has no prior history of GERD or peptic ulcer disease. Physical Exam Physical Exam: General: no acute distress and stated age Head: normocephalic, no masses, lesions, tenderness or abnormalities Eyes: conjunctiva are pink and non-injected, sclera clear Neck: supple, no adenopathy, no bruits, normal jugular venous pulse, no hepatojugular reflux Chest: normal shape and normal respiratory effort Lungs: clear to auscultation and percussion Cardiac Exam: - regular rate & rhythm, no murmurs gallops or rubs - normal S1, normal S2 Pulses: 2(+) throughout Abdomen: abdomen soft, non-tender, no abnormal masses and no hepatosplenomegaly Musculoskeletal: no gait disturbance, no joint inflammation, no deforming arthritis Extremities: no edema and no cyanosis Neuro: grossly normal exam ENMT: Mallampati Class: III Results & Data ([facility]) Vital Signs (Past 12 Hours) Vital Signs Temp Pulse Pulse Resp BP Pulse Ox 02/09/21 13:31 81 18 117/77 94 02/09/21 12:31 75 20 135/91 94 02/09/21 12:01 82 18 128/81 94 02/09/21 11:31 68 18 126/77 93 02/09/21 11:16 36.7 C 73 16 122/78 93 02/09/21 10:05 36.7 C 78 16 145/99 H 95 02/09/21 07:58 36.6 C 81 18 143/82 H 95 02/09/21 07:30 71 02/09/21 04:43 36.8 C 79 18 115/76 96 Laboratory Results Laboratory Results - last 24 hr 02/08/21 02/08/21 02/08/21 15:29 16:56 21:19 WBC RBC Hgb Hct MCV MCH MCHC RDW Std Deviation RDW Coeff of Jsoh Plt Count MPV APTT 47.3 H* PTT Ratio 1.8 Sodium Potassium Chloride Carbon Dioxide Anion Gap BUN Creatinine Est Cr Clr Drug Dosing Est GFR ( Amer) Est GFR (Non-Af Amer) BUN/Creatinine Ratio Glucose Calcium Troponin I 8.060 H* 9.320 H* Triglycerides Cholesterol LDL Cholesterol, Calc VLDL Cholesterol, Calc HDL Cholesterol Cholesterol/HDL Ratio Hepatitis C Ab Screen 02/09/21 02/09/21 02/09/21 06:34 06:34 06:34 WBC 8.83 RBC 4.77 Hgb 14.4 Hct 42.0 MCV 88.1 MCH 30.2 MCHC 34.3 RDW Std Deviation 42.9 RDW Coeff of Josh 13.3 Plt Count 263 MPV 10.1 APTT PTT Ratio Sodium 137 Potassium 3.4 L Chloride 103 Carbon Dioxide 29 Anion Gap 6.0 BUN 21 H Creatinine 0.76 Est Cr Clr Drug Dosing 82.6 Est GFR ( Amer) 101.6 Est GFR (Non-Af Amer) 87.7 BUN/Creatinine Ratio 27.1 H Glucose 100 H Calcium 9.6 Troponin I 4.710 H* Triglycerides 205 H Cholesterol 289 H LDL Cholesterol, Calc 190 VLDL Cholesterol, Calc 41 HDL Cholesterol 58 Cholesterol/HDL Ratio 5 Hepatitis C Ab Screen Neg 02/09/21 06:34 WBC RBC Hgb Hct MCV MCH MCHC RDW Std Deviation RDW Coeff of Josh Plt Count MPV APTT 69.2 H* PTT Ratio 2.6 Sodium Potassium Chloride Carbon Dioxide Anion Gap BUN Creatinine Est Cr Clr Drug Dosing Est GFR ( Amer) Est GFR (Non-Af Amer) BUN/Creatinine Ratio Glucose Calcium Troponin I Triglycerides Cholesterol LDL Cholesterol, Calc VLDL Cholesterol, Calc HDL Cholesterol Cholesterol/HDL Ratio Hepatitis C Ab Screen Medications Administered Current Inpatient Medications Acetaminophen (Acetaminophen 325 Mg Tab) 650 mg PO Q4H PRN PRN Reason: Pain or Fever Stop: 03/10/21 18:21 Last Admin: 02/09/21 13:51 Dose: 650 mg Documented by: Aspirin (Aspirin 81 Mg Ectab) 81 mg PO DAILY [facility] Stop: 03/11/21 08:59 Last Admin: 02/09/21 08:26 Dose: 81 mg Documented by: Chlorthalidone (Chlorthalidone 25 Mg Tab) [facility] Stop: 03/11/21 08:59 Last Admin: 02/09/21 08:26 Dose: 25 mg Documented by: Sodium Chloride (Nss 1000ml) 1,000 mls @ 76 mls/hr IV .[id number] [facility] Stop: 03/11/21 08:44 Last Admin: 02/09/21 11:33 Dose: 76 mls/hr Documented by: Isosorbide Mononitrate (Isosorbide [place] Extended Rel 30 Mg Tabcr) 30 [facility] PO [facility] Stop: 03/11/21 11:29 Last Admin: 02/09/21 12:19 Dose: 30 mg Documented by: Lisinopril (Lisinopril 10 Mg Tab) 10 mg PO [facility] Stop: 03/11/21 11:29 Last Admin: 02/09/21 12:19 Dose: 10 mg Documented by: Metoprolol Tartrate (Metoprolol Tartrate 25 Mg Tab) 12.5 mg PO BID [facility] Stop: 03/10/21 20:59 Last Admin: 02/09/21 08:26 Dose: 12.5 mg Documented by: Ondansetron HCl (Ondansetron Inj 2 Mg/Ml 2 Ml Vial) 4 mg IV Q6H PRN PRN Reason: Nausea Stop: 03/10/21 18:21
[2021-02-09 14:52] LABS: Partial Thromboplastin Time 25.4 Seconds (21.0-31.0)
--- NOTE | 2021-02-09 16:15 | Hospitalist Progress Note ---
Date of Service February 09, 2021 Assessment & Plan (1) Troponin level elevated: (2) Chest pain: Plan: Takatsubo Cardiomyopathy tropinin increased to 8 s/p Cardiac Cath by Dr. Ramirez widely patent coronary arteries (+) Takatsubo cardiomyopathy started on metoprolol, imdur, lisinopril, aspirin continue to monitor (3) Hypertension: Plan: -Presenting BP 164/92 -Continue home chlorthalidone (4) DVT prophylaxis: Plan: given heparin drip Admission and Anticipated Discharge Date Admission Date: February 08, 2021 Subjective ff up for NSTEMI, etc seen resting in bed, comfortable s/p cardiac cath chest pain free states she feels fine overall no chest pain, dyspnea, palpitations, dizziness has mild headache and clear sinus drainage no other symptoms Review of Systems Review of Systems: all noted and negative except for above Physical Exam Physical Exam: General- oriented x 3, not in distress, speaks in sentences with no effort or accessory muscle use Eyes- anicteric Neck- no JVD Lungs- clear breath sounds bilaterally, no rales/wheezes Heart- normal rate, regular rhythm; no murmurs Abdomen- normal bowel sounds, nondistended, soft, nontender Extremities- no pretibial edema, no calf tenderness right wrist- no bleeding, no discharge Neuro- alert, oriented x 3; no gross focal neurologic deficits Skin- warm & dry Results & Data Results & [facility] ([facility]) Vital Signs (Past 12 Hours) Vital Signs Temp Pulse Pulse Resp BP Pulse Ox 02/09/21 15:48 36.7 C 83 20 116/71 94 02/09/21 15:14 56 L 02/09/21 14:31 36.7 C 77 18 110/73 96 02/09/21 13:31 81 18 117/77 94 02/09/21 12:31 75 20 135/91 94 02/09/21 12:01 82 18 128/81 94 02/09/21 11:31 68 18 126/77 93 02/09/21 11:16 36.7 C 73 16 122/78 93 02/09/21 10:05 36.7 C 78 16 145/99 H 95 02/09/21 07:58 36.6 C 81 18 143/82 H 95 02/09/21 07:30 71 02/09/21 04:43 36.8 C 79 18 115/76 96 all noted and reviewed including below
--- NOTE | 2021-02-09 16:48 | Electrocardiogram Report ---
Test Reason : Blood Pressure : / mmHG Vent. Rate : 072 BPM Atrial Rate : 072 BPM P-R Int : 156 ms QRS Dur : 082 ms QT Int : 438 ms P-R-T Axes : 076 011 037 degrees QTc Int : 479 ms Poor data quality, interpretation may be adversely affected Normal sinus rhythm Cannot rule out Anterior infarct , age undetermined Otherwise normal ECG No previous ECGs available Confirmed by Graeme Harris ([id number]) on 02/09/2021 4:48:27 PM Referred By: REFERRED SELF Confirmed By:Graeme Harris
[2021-02-10] MEDS: SODIUM CHLORIDE 0.9% 1000ML 1,000 ML IV SCH (00:05)
[2021-02-10] MEDS: METOPROLOL TARTRATE 25 MG TAB PO SCH (08:16)
[2021-02-10] MEDS: ISOSORBIDE MONO EXTENDED REL 30 MG TABCR PO SCH (08:17)
[2021-02-10] MEDS: lisinopril 10 MG TAB PO SCH (08:17)
[2021-02-10] MEDS: ASPIRIN 81 MG ECTAB PO SCH (08:17)
[2021-02-10] MEDS: CHLORTHALIDONE 25 MG TAB PO SCH (08:17)
--- NOTE | 2021-02-10 08:59 | Cardiology Progress Note ---
Date of Service February 10, 2021 Assessment & Plan (1) Chest pain: (2) Troponin level elevated: (3) Takotsubo syndrome: Plan: The patient is doing well and tolerating her new medications. I believe that she can be discharged to outpatient follow-up. I will arrange follow-up through our clinic. Admission and Anticipated Discharge Date Admission Date: February 08, 2021 Subjective The patient had an uneventful night. No additional chest pain. She feels well. Review of Systems Review of Systems: Review of Systems: See HPI for pertinent positives. All other 10 point review of systems are negative.In addition the patient has no prior history of GERD or peptic ulcer disease. Physical Exam Physical Exam: General: no acute distress and stated age Head: normocephalic, no masses, lesions, tenderness or abnormalities Eyes: conjunctiva are pink and non-injected, sclera clear Neck: supple, no adenopathy, no bruits, normal jugular venous pulse, no he patojugular reflux Chest: normal shape and normal respiratory effort Lungs: clear to auscultation and percussion Cardiac Exam: - regular rate & rhythm, no murmurs gallops or rubs - normal S1, normal S2 Pulses: 2(+) throughout Abdomen: abdomen soft, non-tender, no abnormal masses and no hepatosplenomegaly Musculoskeletal: no gait disturbance, no joint inflammation, no deforming arthritis Extremities: no edema and no cyanosis Neuro: grossly normal exam ENMT: Mallampati Class: III Results & Data ([facility]) Vital Signs (Past 12 Hours) Vital Signs Temp Pulse Pulse Resp BP Pulse Ox 02/10/21 07:58 37.1 C 88 16 123/76 93 02/10/21 07:23 72 02/10/21 03:48 36.7 C 75 18 112/73 95 02/09/21 23:40 36.8 C 69 16 111/72 92 02/09/21 23:00 72 Laboratory Results Laboratory Results - last 24 hr 02/09/21 02/09/21 06:34 14:28 APTT 25.4 PTT Ratio 1.0 Hepatitis C Ab Screen Neg Medications Administered Current Inpatient Medications Acetaminophen (Acetaminophen 325 Mg Tab) 650 mg PO Q4H PRN PRN Reason: Pain or Fever Stop: 03/10/21 18:21 Last Admin: 02/09/21 13:51 Dose: 650 mg Documented by: Aspirin (Aspirin 81 Mg Ectab) 81 mg PO DAILY [facility] Stop: 03/11/21 08:59 Last Admin: 02/10/21 08:17 Dose: 81 mg Documented by: Chlorthalidone (Chlorthalidone 25 Mg Tab) [address] [facility] Stop: 03/11/21 08:59 Last Admin: 02/10/21 08:17 Dose: 25 mg Documented by: Isosorbide Mononitrate (Isosorbide Will Extended Rel 30 Mg Tabcr) [address] [facility] Stop: 03/11/21 11:29 Last Admin: 02/10/21 08:17 Dose: 30 mg Documented by: Lisinopril (Lisinopril 10 Mg Tab) [address] [facility] Stop: 03/11/21 11:29 Last Admin: 02/10/21 08:17 Dose: 10 mg Documented by: Metoprolol Succinate (Metoprolol Succ 25mg Ext Rel Tab) [address] [facility] Stop: 03/12/21 08:59 Ondansetron HCl (Ondansetron Inj 2 Mg/Ml 2 Ml Vial) 4 mg IV Q6H PRN PRN Reason: Nausea Stop: 03/10/21 18:21
[2021-02-10] MEDS ORDERED: METOPROLOL SUCC 25MG EXT REL TAB PO SCH (10:00)
--- NOTE | 2021-02-10 11:36 | Hospitalist Progress Note ---
Date of Service February 10, 2021 delayed entry date of service noted above Assessment & Plan (1) Troponin level elevated: (2) Chest pain: Plan: Takatsubo Cardiomyopathy troponin increased to 8 s/p Cardiac Cath by Dr. Ramirez widely patent coronary arteries (+) Takatsubo cardiomyopathy started on metoprolol, imdur, lisinopril, aspirin chest pain free after cardiac cath cleared for d/c with metoprolol, imdur, lisinopril, aspirin ff up with Silicator in 1-2 weeks (3) Hypertension: Plan: -Presenting BP 164/92 -bp improved with metoprolol, imdur, lisinopril - d/c Chlorthalidone monitor as outpatient (4) DVT prophylaxis: Plan: given heparin drip plan of care discussed with patient in detail and at length all questions answered she is understanding, agreeable, comfortable with the plan of care Admission and Anticipated Discharge Date Admission Date: February 08, 2021 Subjective ff up for Takatsubo cardiomyopathy seen resting in bed, comfortable not in distress states she feels fine overall chest pain free no chest pain, dyspnea, palpitations, dizziness no abdominal pain, nausea no fever/chills no other symptoms Review of Systems Review of Systems: all noted and negative except for above Physical Exam Physical Exam: General- oriented x 3, not in distress, speaks in sentences with no effort or accessory muscle use Eyes- anicteric Neck- no JVD Lungs- clear breath sounds bilaterally, no rales/wheezes Heart- normal rate, regular rhythm; no murmurs Abdomen- normal bowel sounds, nondistended, soft, nontender Extremities- no pretibial edema, no calf tenderness r wrist- no bleeding/hematoma Neuro- alert, oriented x 3; no gross focal neurologic deficits Skin- warm & dry Results & Data Results & Data ([facility]) Vital Signs (Past 12 Hours) Vital Signs Temp Pulse Pulse Resp BP Pulse Ox 02/10/21 07:58 37.1 C 88 16 123/76 93 02/10/21 07:23 72 02/10/21 03:48 36.7 C 75 18 112/73 95 02/09/21 23:40 36.8 C 69 16 111/72 92 all noted and reviewed including below
--- NOTE | 2021-02-10 11:55 | Electrocardiogram Report ---
Test Reason : Blood Pressure : / mmHG Vent. Rate : 074 BPM Atrial Rate : 074 BPM P-R Int : 162 ms QRS Dur : 080 ms QT Int : 420 ms P-R-T Axes : 065 003 077 degrees QTc Int : 466 ms Normal sinus rhythm Cannot rule out Anterior infarct (cited on or before 08-FEB-2021) Abnormal ECG When compared with ECG of 08-FEB-2021 09:12, (unconfirmed) No significant change was found Confirmed by Graeme Harris ([id number]) on 02/10/2021 11:55:08 AM Referred By: REFERRED SELF Confirmed By:Graeme Harris
--- NOTE | 2021-02-11 16:12 | Discharge Summary ---
Date of Service February 11, 2021 Admission HPI Per Admitting Provider Chief Complaint: Chest pain Primary Care Provider: Chet Armstrong MD 55-year-old female with PMH HTN, and other problems listed below who presents the ED for evaluation of chest pain. Patient reports that around 8 AM, she developed a midsternal chest pressure and burning. Describes pain as being moderately severe. Denies associated shortness of breath, diaphoresis, nausea, lightheadedness, syncope. Chest discomfort lasted for about 30 minutes and patient then came to the ED for further evaluation. Since arriving to the ED, pain spontaneously resolved on its own. Patient reports she otherwise has been feeling well recently. No other recent illnesses, fevers, chills. Denies abdominal pain, vomiting, diarrhea. No urinary symptoms. In the ED, initial troponin 0.291, EKG without acute changes. Mildly hypertensive with BP 164/92. Patient was given full dose aspirin, GI cocktail, p.o. Protonix. She was also started on a heparin drip. Patient is currently chest pain-free. Admission Exam (Per Admitting) Constitutional Constitutional: WD/WN, vitals as above Eyes: PERRL, conjunctivae normal, anicteric sclerae ENMT: external ear and nose normal, oropharynx normal Respiratory: normal respiratory effort, lungs clear to auscultation Cardiovascular: Rate/Rhythm: regular rate and regular rhythm Vessels: norm al peripheral pulses Extremities: no edema Gastrointestinal (Abdomen): normal bowel sounds, soft, nontender, no hepatosplenomegaly Musculoskeletal: no cyanosis or clubbing, extremities motor strength 5/5 Skin: no rashes, warm and dry Neurologic: PERRL, EOMI, accommodation nl, no face palsy, no dysarthria Psychiatric: A+Ox3, euthymic affect Discharge Data Consultations 02/08/21 10:26 Consult Cardiology Stat 02/08/21 10:35 ED Decision to Admit Stat 02/08/21 18:22 Consult Cardiology Routine Procedures Performed Operation Date: 02/09/21 10:30 Actual Procedures p Cath, Left with Cors and Vent - Braeden Ramirez DO s Cineradiography w/Routine Exam - Braeden Ramirez DO Hospital Course (1) Troponin level elevated: (2) Chest pain: Takatsubo Cardiomyopathy troponin increased to 8 s/p Cardiac Cath by Dr. Ramirez widely patent coronary arteries (+) Takatsubo cardiomyopathy started on metoprolol, imdur, lisinopril, aspirin chest pain free after cardiac cath cleared for d/c with metoprolol, imdur, lisinopril, aspirin ff up with Filleter in 1-2 weeks (3) Hypertension: -Presenting BP 164/92 -bp improved with metoprolol, imdur, lisinopril - d/c Chlorthalidone monitor as outpatient (4) DVT prophylaxis: given heparin drip plan of care discussed with patient in detail and at length all questions answered she is understanding, agreeable, comfortable with the plan of care
== END 2021-02-10 13:17 | disposition home or self-care (01) | DRG 287 ==
LOC: ED 09:05 → EDINP 10:38 → 2S 17:58